=== PATIENT | male | born 1970 | race African-American/Black ===

== ENCOUNTER 2017-04-12 01:23 | Emergency (ER) | payer OTHER ==
--- NOTE | ~2017-04-12 | EKG ---
PATIENT: Hal POWELL UNIT #: [id number] Ventricular Rate: 61 BPM Atrial Rate: 61 BPM P-R Interval: 150 ms QRS Duration: 152 ms Q-T Interval: 484 ms QTC Calculation(Bezet): 487 ms P [place]: 38 degrees Calculated R [place]: -18 degrees Calculated T [place]: 124 degrees Diagnosis Line: Normal sinus rhythm Diagnosis Line: Left bundle branch block Diagnosis Line: Abnormal ECG Diagnosis Line: No previous ECGs available Diagnosis Line: Confirmed by VONNIE FRAZIER MD ([id number]) on Diagnosis Line: 04/14/2017 9:49:49 AM INTERPRETING MDLorenzo TRACY
[2017-04-12 04:46] LABS: URINE SOURCE CLEAN CATCH
[2017-04-12 04:49] LABS: URINE APPEARANCE CLEAR; URINE BILIRUBIN NEG (NEG); URINE BLOOD NEG (NEG); URINE COLOR YELLOW; URINE GLUCOSE NEG (NEG); URINE KETONE NEG (NEG); URINE LEUKOCYTE ESTERASE NEG (NEG); URINE NITRATE NEG (NEG); URINE PROTEIN NEG (NEG); URINE SPECIFIC GRAVITY 1.014 (1.003-1.035)
[2017-04-12 04:54] LABS: CULTURE INDICATED? NO
[2017-04-12 05:01] LABS: BASOPHIL# 0.1 X10e3 (0-0.3); BASOPHIL% 1.3 % (0-2.5); EOSINOPHIL# 0.3 X10e3 (0-0.7); EOSINOPHIL% 3.8 % (0.0-7.0); HEMATOCRIT 45.1 % (38.0-50.0); HEMOGLOBIN 15.3 gm/dL (13.0-16.0); LYMPHOCYTE# 2.5 X10e3 (1.0-3.5); LYMPHOCYTE% 35.1 % (17.0-45.0); MEAN CELL VOLUME 94.5 FL (83-96); MEAN CORPUSCULAR HGB CONC 33.9 g/dL (30-36); MEAN PLATELET VOLUME 11.5 FL (6.5-11.5); MONOCYTE# 0.9 X10e3 (0-1.0); MONOCYTE% 12.9 % (3.0-12.0); NEUTROPHIL# 3.4 X10e3 (1.5-7.1); NEUTROPHIL% 46.9 % (40-75); PLATELET COUNT 136 X10e3 (140-420); RED BLOOD COUNT 4.77 X10e (3.90-5.60); RED CELL DISTRIBUTION WIDTH 12.3 % (11.0-15.5); WHITE BLOOD COUNT 7.2 X10e3 (4.0-10.5)
[2017-04-12 05:17] LABS: DIFF IND NO
[2017-04-12 05:52] LABS: BUN/CREATININE RATIO 14.61; CALCIUM SERUM 9.7 mg/dL (8.4-10.2); CREATININE SERUM 1.3 mg/dL (0.6-1.4); GLOM FILT RATE Estimated 75.3 mL/min (>60); POTASSIUM 3.7 mmol/L (3.5-5.1)
== END 2017-04-12 07:30 | disposition home or self-care (01) ==
LOC: CED 01:23
PROVIDERS: Physician Assistant
DX: I10 Essential (primary) hypertension (principal)
CPT/HCPCS: 36415; 80048; 81003; 82550; 84484; 85025; 93005; 99283; J1885